=== PATIENT | male | born 1975 | race Caucasian/White ===

== ENCOUNTER 2019-09-20 15:30 | Emergency (ER) | payer OTHER ==
--- NOTE | 2019-09-20 15:50 | ED Physician Documentation ---
PD HPI ABD PAIN - Stated complaint Stated Complaint: ABD PX - Chief complaint Chief Complaint: Abd Pain - History obtained from History obtained from: Patient (2 days of nonmigratory right lower quadrant pain generally worsening and fairly constant. Radiated a little bit to the testicle yesterday but that is now gone. He talked with his doctor yesterday, was advised to come the ER if he developed nausea or fever, he did become nauseous i n the last few hours and had a low-grade temperature. No history of abdominal surgeries.) Review of Systems Ten Systems: 10 systems reviewed and negative Constitutional: reports: Fever. denies: Chills GI: reports: Nausea. denies: Vomiting, Constipation, Diarrhea : denies: Dysuria, Frequency PD PAST MEDICAL HISTORY - Past Medical History Past Medical History: No - Past Surgical History Past Surgical History: Yes HEENT: Tonsil/Adenoidectomy - Present Medications Home Medications: Ambulatory Orders Medication Instructions Recorded Confirmed Amox/Clav 875/125 [Augmentin] 1 each PO Q12H #20 tablet 09/20/19 - Allergies Allergies/Adverse Reactions: Allergies Allergy/AdvReac Type Severity Reaction Status Date / Time No Known Drug Allergies Allergy Verified 09/20/19 15:41 - Social History Does the pt smoke?: No Smoking Status: Never smoker Does the pt drink ETOH?: Yes ETOH Use: Liquor Does the pt have substance abuse?: No - Immunizations Immunizations are current?: Yes PD ED PE NORMAL - Vitals Vital signs reviewed: Yes - General General: Alert and oriented X 3, No acute distress - HEENT HEENT: PERRL, EOMI - Neck Neck: Supple, no meningeal sign, No bony TTP - Cardiac Cardiac: RRR, No murmur - Respiratory Respiratory: No respiratory distress, Clear bilaterally - Abdomen Abdomen: Other (Focally tender in the right lower quadrant without guarding or rebound. Testicular examination is normal.) - Derm Derm: No rash - Extremities Extremities: No edema, No calf tenderness / cord - Neuro Neuro: Alert and oriented X 3, Normal speech Results - Vitals Vitals: Vital Signs - 24 hr 09/20/19 09/20/19 15:38 15:40 Temperature 36.9 C Heart Rate 96 90 Respiratory 18 16 Rate Blood Pressure 152/89 H 149/85 H O2 Saturation 98 98 Oxygen O2 Source Room air - Labs Labs: Laboratory Tests 09/20/19 09/20/19 09/20/19 14:40 16:04 16:04 WBC 8.9 RBC 4.75 Hgb 14.9 Hct 43.5 MCV 91.6 MCH 31.4 H MCHC 34.3 RDW 12.6 Plt Count 158 MPV 9.2 Neut # (Auto) 6.9 H Lymph # (Auto) 0.9 L [place] # (Auto) 0.9 Eos # (Auto) 0.1 Baso # (Auto) 0.0 Absolute Nucleated RBC 0.00 Nucleated RBC % 0.0 Sodium 135 Potassium 3.3 L Chloride 103 Carbon Dioxide 23 Anion Gap 9.0 BUN 14 Creatinine 1.0 Estimated GFR (MDRD) 82 L Glucose 120 H Calcium 8.8 Total Bilirubin 1.7 H AST 23 ALT 25 Alkaline Phosphatase 59 Total Protein 7.2 Albumin 4.4 Globulin 2.8 Albumin/Globulin Ratio 1.6 Lipase 39 Urine Color DARK YELLOW Urine Clarity CLEAR Urine pH 6.5 Ur Specific [place] 1.025 Urine Protein TRACE Urine Glucose (UA) NEGATIVE Urine Ketones NEGATIVE Urine Occult Blood NEGATIVE Urine Nitrite NEGATIVE Urine Bilirubin NEGATIVE Urine Urobilinogen 1 (NORMAL) Ur Leukocyte Esterase TRACE H Urine RBC None Seen Urine WBC 0-3 Ur Squamous Epith Cells NONE SEEN Urine Bacteria None Seen Urine Mucus Marked Strands Ur Microscopic Review INDICATED Urine Culture Comments INDICATED PD MEDICAL DECISION MAKING - ED course ED course: 43-year-old gentleman presents with right lower quadrant pain concerning for appendicitis. White count was fairly normal with mild left shift. CT showing a normal appendix but findings of cecal-itis versus typhlitis versus cecal diverticulitis. Case was discussed by phone with the on-call surgeon, Dr. Castanon who felt he could be safely discharged after a dose of Zosyn here on Augmentin for follow-up colonoscopy. Patient felt comfortable with this plan and requested discharge. Departure - Departure Disposition: 01 Home, Self Care Clinical Impression: Cecal diverticulitis Condition: Good Record reviewed to determine appropriate education?: Yes Instructions: Diverticulitis Dc Prescriptions: Amox/Clav 875/125 [Augmentin] 1 each PO Q12H #20 tablet Comments: The CAT scan today showed inflammation of the cecum which is the beginning part of your colon. Your appendix looks normal. This should improve with the antibiotics. That said if not better in the next 24 to 48 hours or anytime if you are running a high fever or generally worsening please return for reevaluation. As discussed, you will need a colonoscopy in approximately 8 weeks, talk with your doctor about a referral for this. The colonoscopy cannot be done urgently because the inflammation would make it dangerous.
[2019-09-20] MEDS ORDERED: IOVERSOL 320 100 ML VIAL IVP ONE (16:09)
[2019-09-20 16:26] LABS: BASOPHILS % (AUTO) 0.5 %; EOSINOPHILS # (AUTO) 0.1 10^3/uL (0.0-0.7); EOSINOPHILS % (AUTO) 0.9 %; HGB - HEMOGLOBIN 14.9 g/dL (14.0-18.0); LYMPHOCYTES # (AUTO) 0.9 10^3/uL (1.5-3.5); MEAN CORPUSCULAR HEMOGLOBIN 31.4 pg (27.0-31.0); MEAN CORPUSCULAR HGB CONC 34.3 g/dL (32.0-36.0); MEAN CORPUSCULAR VOLUME 91.6 fL (80.0-94.0); MEAN PLATELET VOLUME 9.2 fL (7.4-11.4); MONOCYTES # (AUTO) 0.9 10^3/uL (0.0-1.0); MONOCYTES % (AUTO) 9.6 %; NEUTROPHILS # (AUTO) 6.9 10^3/uL (1.5-6.6); NEUTROPHILS % (AUTO) 78.3 %; PLT - PLATELET COUNT 158 10^3/uL (130-450); RED BLOOD COUNT 4.75 10^6/uL (4.70-6.10); RED CELL DISTRIBUTION WIDTH 12.6 % (12.0-15.0); WHITE BLOOD COUNT 8.9 x10^3/uL (4.8-10.8)
[2019-09-20 16:40] LABS: ALBUMIN 4.4 g/dL (3.2-5.5); ALBUMIN/GLOBULIN RATIO 1.6 (1.0-2.2); BILIRUBIN,TOTAL 1.7 mg/dL (0.2-1.0); CALCIUM 8.8 mg/dL (8.5-10.3); TOTAL PROTEIN 7.2 g/dL (6.7-8.2)
[2019-09-20 16:50] LABS: GLUCOSE, URINE (UA) NEGATIVE (NEGATIVE); KETONES,URINE (UA) NEGATIVE (NEGATIVE); LEUKOCYTE ESTERASE, URINE TRACE (NEGATIVE); NITRITE,URINE NEGATIVE (NEGATIVE); OCCULT BLOOD,URINE NEGATIVE (NEGATIVE); PH,URINE 6.5 PH (5.0-7.5); PROTEIN,URINE TRACE mg/dL (NEGATIVE); UROBILINOGEN,URINE 1 (NORMAL) E.U./dL (NORMAL)
[2019-09-20 16:59] LABS: BILIRUBIN,URINE NEGATIVE (NEGATIVE); CLARITY,URINE CLEAR (CLEAR); ICTOTEST,URINE NEGATIVE
[2019-09-20] MEDS: IOVERSOL 320 100 ML VIAL IVP ONE (17:01)
[2019-09-20 17:02] LABS: BACTERIA,URINE None Seen /HPF (None Seen); MUCUS,URINE Marked Strands; RBC,URINE None Seen /HPF (0-5); SQUAMOUS EPITHELIAL CELL,UR NONE SEEN (<= Few)
[2019-09-20] MEDS: PIPERACILLIN/TAZOBACTAM 3.375 GM in SODIUM CHLORIDE 0.9% MINIBAG 100 ML IV STA (17:40)
--- NOTE | 2019-09-20 17:44 | CT Report ---
Reason: IV only, RLQ pain Procedure Date: 09/20/2019 Accession Number: [id number] / [id number] Procedure: CT - Abdomen/Pelvis W CPT Code: Final Report FULL RESULT: EXAM: CT ABDOMEN AND PELVIS EXAM DATE: 09/20/2019 05:00 PM. CLINICAL HISTORY: IV only, RLQ pain. COMPARISONS: None. TECHNIQUE: Routine helical CT imaging was performed through the abdomen and pelvis. IV contrast: OPTIRAY 320. Enteric contrast: No. Reconstructions: Coronal and sagittal. In accordance with CT protocol optimization, one or more of the following dose reduction techniques were utilized for this exam: automated exposure control, adjustment of mA and/or KV based on patient size, or use of iterative reconstructive technique. FINDINGS: Lung Bases: Unremarkable. Liver: Normal. No masses. Gallbladder/Bile Ducts: Contracted gallbladder. Spleen: Normal. Pancreas: Normal. Adrenal Glands: Normal. Kidneys: Normal. No masses or hydronephrosis. Peritoneal Cavity/Bowel: Tiny diverticula noted involving cecum. There is submucosal edema, mucosal hyperenhancement and pericolonic wall thickening involving the cecum and proximal ascending colon. Findings suggestive of cecal diverticulitis,cecitis, typhlitis. Normal appendix noted. Trace free fluid seen in the pelvis. Pelvic Organs: Normal. The bladder and visualized pelvic organs are within normal limits. Vasculature: No aneurysms or other significant abnormality. Bones: No significant abnormality. Other: None. IMPRESSION: Submucosal edema, mucosal hyperenhancement and pericolonic wall thickening involving cecum and proximal ascending colon. Findings suggestive of cecal diverticulitis, cecitis or typhlitis. Normal appendix. RADIA
[2019-09-20 18:36] VITALS: BP 142/89
== END 2019-09-20 18:36 | disposition home or self-care (01) ==
LOC: ED 15:30
DX: K57.32 Diverticulitis of large intestine without perforation or abscess without bleeding (principal)
CPT/HCPCS: 36415; 74177; 80053; 81001; 83690; 85025; 87086; 96365; 99284; 99285; Q9967; 81003

== ENCOUNTER 2019-10-06 09:43 | Emergency (ER) | payer OTHER ==
[2019-10-06 10:07] LABS: BILIRUBIN,URINE NEGATIVE (NEGATIVE); GLUCOSE, URINE (UA) NEGATIVE (NEGATIVE); KETONES,URINE (UA) NEGATIVE (NEGATIVE); LEUKOCYTE ESTERASE, URINE NEGATIVE (NEGATIVE); NITRITE,URINE NEGATIVE (NEGATIVE); OCCULT BLOOD,URINE NEGATIVE (NEGATIVE); PH,URINE 6.5 PH (5.0-7.5); PROTEIN,URINE NEGATIVE (NEGATIVE); UROBILINOGEN,URINE 0.2 (NORMAL) E.U./dL (NORMAL)
[2019-10-06 10:13] LABS: BASOPHILS % (AUTO) 0.5 %; EOSINOPHILS # (AUTO) 0.1 10^3/uL (0.0-0.7); EOSINOPHILS % (AUTO) 0.9 %; HGB - HEMOGLOBIN 15.1 g/dL (14.0-18.0); LYMPHOCYTES # (AUTO) 1.2 10^3/uL (1.5-3.5); LYMPHOCYTES % (AUTO) 13.3 %; MEAN CORPUSCULAR HEMOGLOBIN 30.9 pg (27.0-31.0); MEAN CORPUSCULAR HGB CONC 33.8 g/dL (32.0-36.0); MEAN CORPUSCULAR VOLUME 91.6 fL (80.0-94.0); MEAN PLATELET VOLUME 8.8 fL (7.4-11.4); MONOCYTES # (AUTO) 0.6 10^3/uL (0.0-1.0); MONOCYTES % (AUTO) 6.3 %; NEUTROPHILS % (AUTO) 78.7 %; PLT - PLATELET COUNT 185 10^3/uL (130-450); RED BLOOD COUNT 4.88 10^6/uL (4.70-6.10); RED CELL DISTRIBUTION WIDTH 12.4 % (12.0-15.0); WHITE BLOOD COUNT 8.9 x10^3/uL (4.8-10.8)
[2019-10-06 10:14] LABS: CLARITY,URINE CLEAR (CLEAR)
--- NOTE | 2019-10-06 11:10 | ED Physician Documentation ---
PD HPI ABD PAIN - Stated complaint Stated Complaint: ABD PX - Chief complaint Chief Complaint: Abd Pain - History obtained from History obtained from: Patient - History of Present Illness Timing - onset: Today Timing - duration: Days (1) Timing - details: Gradual onset, Still present Quality: Cramping, Aching, Pain Location: RLQ, Suprapubic Radiation: No: Lower back Improved by: BM. No: Eating Worsened by: No: Eating Associated symptoms: Nausea. No: Fever, Vomiting, Diarrhea, Dysuria Similar symptoms before: Diagnosis (similar symptoms 2 weeks ago and Dx cecal diverticulitis by CT, Rx with Augmentin and he says he felt better withing 1-2 days and had no symptoms until today. Finished abx 4 days ago.) Recently seen: Emergency Dept Review of Systems Constitutional: denies: Fever, Chills Cardiac: denies: Chest pain / pressure Respiratory: denies: Cough GI: reports: Abdominal Pain, Nausea. denies: Abdominal Swelling, Vomiting, Constipation, Diarrhea : denies: Dysuria Neurologic: denies: Generalized weakness PD PAST MEDICAL HISTORY - Past Medical History Cardiovascular: None Respiratory: None Neuro: None Endocrine/Autoimmune: None GI: Diverticulitis : None HEENT: Chronic vision loss Psych: None Musculoskeletal: None Derm: None - Past Surgical History Past Surgical History: Yes HEENT: Tonsil/Adenoidectomy - Present Medications Home Medications: Ambulatory Orders Medication Instructions Recorded Confirmed Cephalexin [Keflex] 500 mg PO TID #30 capsule 10/06/19 Naproxen 500 mg PO BID #14 tablet 10/06/19 Ondansetron Odt [Zofran] 4 mg TL Q6H PRN #10 tablet 10/06/19 metroNIDAZOLE [Flagyl] 500 mg PO BID #20 tablet 10/06/19 - Allergies Allergies/Adverse Reactions: Allergies Allergy/AdvReac Type Severity Reaction Status Date / Time No Known Drug Allergies Allergy Verified 10/06/19 09:52 - Social History Does the pt smoke?: No Smoking Status: Never smoker Does the pt drink ETOH?: Yes ETOH Use: Liquor Does the pt have substance abuse?: No - Immunizations Immunizations are current?: Yes - POLST Patient has POLST: No PD ED PE NORMAL - Vitals Vital signs reviewed: Yes - General General: Alert and oriented X 3, No acute distress, Well developed/nourished - Neck Neck: Supple, no meningeal sign, No adenopathy - Cardiac Cardiac: RRR, No murmur - Respiratory Respiratory: Clear bilaterally - Abdomen Abdomen: Normal bowel sounds, Soft, Non distended, No organomegaly, Other (mild tender RLQ/suprapubic area without guarding, rebound, nor percussion tenderness. ) - Male Male : Deferred - Rectal Rectal: Deferred - Back Back: No CVA TTP - Derm Derm: Normal color, Warm and dry - Neuro Neuro: Alert and oriented X 3, No motor deficit, Normal speech Results - Vitals Vitals: Vital Signs - 24 hr 10/06/19 10/06/19 10/06/19 09:53 10:08 11:39 Temperature 36.7 C Heart Rate 85 84 72 Respiratory 18 16 16 Rate Blood Pressure 166/112 H 164/90 H 129/91 H O2 Saturation 97 96 96 10/06/19 12:17 Temperature 36.7 C Heart Rate 73 Respiratory 12 Rate Blood Pressure 139/103 H O2 Saturation 98 Oxygen O2 Source Room air - Labs Labs: Laboratory Tests 10/06/19 10/06/19 10/06/19 10:00 10:05 10:05 WBC 8.9 RBC 4.88 Hgb 15.1 Hct 44.7 MCV 91.6 MCH 30.9 MCHC 33.8 RDW 12.4 Plt Count 185 MPV 8.8 Neut # (Auto) 7.0 H Lymph # (Auto) 1.2 L [place] # (Auto) 0.6 Eos # (Auto) 0.1 Baso # (Auto) 0.0 Absolute Nucleated RBC 0.00 Nucleated RBC % 0.0 Sodium 138 Potassium 4.1 Chloride 105 Carbon Dioxide 27 Anion Gap 6.0 BUN 12 Creatinine 1.0 Estimated GFR (MDRD) 82 L Glucose 119 H Calcium 9.5 Total Bilirubin 1.1 H AST 34 ALT 32 Alkaline Phosphatase 64 Total Protein 7.6 Albumin 4.3 Globulin 3.3 Albumin/Globulin Ratio 1.3 Lipase 42 Urine Color DARK YELLOW Urine Clarity CLEAR Urine pH 6.5 Ur Specific [place] 1.020 Urine Protein NEGATIVE Urine Glucose (UA) NEGATIVE Urine Ketones NEGATIVE Urine Occult Blood NEGATIVE Urine Nitrite NEGATIVE Urine Bilirubin NEGATIVE Urine Urobilinogen 0.2 (NORMAL) Ur Leukocyte Esterase NEGATIVE Ur Microscopic Review NOT INDICATED Urine Culture Comments NOT INDICATED PD MEDICAL DECISION MAKING - ED course Complexity details: reviewed old records, considered differential (pain same as recent Dx cecal diverticulitis, off abx just few days with return of symptoms. Shared decision not to do repeat imaging, as low suspicion for perf/abscess based on symptoms/exam. ), d/w patient Departure - Departure Disposition: 01 Home, Self Care Clinical Impression: Lower abdominal pain, Cecal diverticulitis Condition: Stable Record reviewed to determine appropriate education?: Yes Instructions: ED Diverticulitis Follow-Up: DORIS ASHLEY [Primary Care Provider] - Prescriptions: Cephalexin [Keflex] 500 mg PO TID #30 capsule metroNIDAZOLE [Flagyl] 500 mg PO BID #20 tablet Naproxen 500 mg PO BID #14 tablet Ondansetron Odt [Zofran] 4 mg TL Q6H PRN #10 tablet PRN Reason: Nausea / Vomiting Comments: Stay well-hydrated and normal diet. Ondansetron if needed for nausea. Tylenol if needed for fevers. Naproxen anti-inflammatory twice daily for a week. Cephalexin and metronidazole antibiotics as directed for a week. Recheck if not improving well over the next couple of days return sooner if worsening or if recurrence again after the next course of antibiotics. Discharge Date/Time: 10/06/19 12:21
[2019-10-06 11:17] LABS: ALBUMIN 4.3 g/dL (3.2-5.5); ALBUMIN/GLOBULIN RATIO 1.3 (1.0-2.2); BILIRUBIN,TOTAL 1.1 mg/dL (0.2-1.0); CALCIUM 9.5 mg/dL (8.5-10.3); TOTAL PROTEIN 7.6 g/dL (6.7-8.2)
[2019-10-06] MEDS ORDERED: KETOROLAC 30 MG/ML VIAL IVP STA (11:27)
[2019-10-06] MEDS ORDERED: cefTRIAXone 1 GM VIAL IVP STA (11:27)
[2019-10-06 12:17] VITALS: BP 139/103
== END 2019-10-06 12:21 | disposition home or self-care (01) ==
LOC: ED 09:43
DX: K57.32 Diverticulitis of large intestine without perforation or abscess without bleeding (principal)
CPT/HCPCS: 36415; 80053; 81001; 81003; 83690; 85025; 87086; 96374; 96375; 99284

== ENCOUNTER 2021-06-27 08:00 | Outpatient (CLI) | payer OTHER | END 2021-06-27 23:59 | LOC: LAB.N 08:00 | PROVIDERS: ATTEND Family Medicine | DX: R53.83 Other fatigue (principal); R53.81 Other malaise; Z20.822 Contact with and (suspected) exposure to COVID-19 | CPT/HCPCS: 87275; 87276 ==

== ENCOUNTER 2022-11-01 14:10 | Outpatient (CLI) | payer OTHER | END 2022-11-01 14:11 | disposition EMS.NT | LOC: EMS 14:10 | DX: Z03.89 Encounter for observation for other suspected diseases and conditions ruled out (principal) ==

== ENCOUNTER 2022-11-29 14:29 | Emergency (ER) | payer OTHER ==
[2022-11-29 14:50] VITALS: BP 169/112
--- NOTE | 2022-11-29 14:58 | ED Physician Documentation ---
PD HPI MHE - Stated complaint Stated Complaint: NOT FEELING WELL - Chief complaint Chief Complaint: MHE - History obtained from History obtained from: Patient - History of Present Illness Primary symptom: Depression, Anxiety. No: Suicidal ideation Timing - onset: How many weeks ago (he states has had depression and anxiety for years wtihout treatment. It has been much worse the past several weeks. has been drinking regularly as well. Had been binge drinker on weeks ends. He denies everry day drinking. Gets some shakiness next day. No vomiting nor severe syptoms previousl.) Contributing factors: Family, Substance abuse - ETOH Similar symptoms before: Has not had sx before Recently seen: Not recently seen Review of Systems Constitutional: denies: Fever, Chills Nose: denies: Rhinorrhea / runny nose, Congestion Throat: denies: Sore throat Cardiac: denies: Chest pain / pressure Respiratory: denies: Cough GI: reports: Abdominal Pain, Nausea, Vomiting, Diarrhea. denies: Abdominal Swelling PD PAST MEDICAL HISTORY - Past Medical History Cardiovascular: None Respiratory: None Neuro: None Endocrine/Autoimmune: None GI: Diverticulitis : None HEENT: Chronic vision loss Psych: None Musculoskeletal: None Derm: None - Past Surgical History Past Surgical History: Yes HEENT: Tonsil/Adenoidectomy - Present Medications Home Medications: Ambulatory Orders Medication Instructions Recorded Confirmed Naproxen 500 mg PO BID #14 tablet 10/06/19 Ondansetron Odt [Zofran] 4 mg TL Q6H PRN #10 tablet 10/06/19 cephALEXin [Keflex] 500 mg PO TID #30 capsule 10/06/19 metroNIDAZOLE [Flagyl] 500 mg PO BID #20 tablet 10/06/19 LORazepam [Ativan] 1 mg PO Q6H PRN #25 tablet 11/29/22 Ondansetron Odt [Zofran] 4 mg TL Q6H PRN #20 tablet 11/29/22 buPROPion HCL [Bupropion Xl] 150 mg PO DAILY #30 tab 11/29/22 - Allergies Allergies/Adverse Reactions: Allergies Allergy/AdvReac Type Severity Reaction Status Date / Time No Known Drug Allergies Allergy Verified 11/29/22 14:49 - Social History Does the pt smoke?: No Smoking Status: Never smoker Does the pt drink ETOH?: Yes Does the pt have substance abuse?: No - Immunizations Immunizations are current?: Yes - POLST Patient has POLST: No PD ED PE NORMAL - Vitals Vital signs reviewed: Yes - General General: Alert and oriented X 3, Well developed/nourished, Other (smell of alcohol on breath. Easily tearful and emotive. ) - HEENT HEENT: Pharynx benign - Neck Neck: Supple, no meningeal sign, No adenopathy - Cardiac Cardiac: No murmur, No rub. No: RRR (tachycardic but regular. ) - Respiratory Respiratory: No respiratory distress, Clear bilaterally - Abdomen Abdomen: Normal bowel sounds, Soft, Non distended, No organomegaly, Other (mild tender epigastric without percussion nor rebound tenderness. ) - Male Male : Deferred - Rectal Rectal: Deferred - Derm Derm: Normal color, Warm and dry - Extremities Extremities: Normal ROM s pain, No edema - Neuro Neuro: Alert and oriented X 3, No motor deficit, No sensory deficit, Normal speech - Psych Psych: No: Normal mood (sad and tearful; sounds emotionally depleted of energy. ) Results - Vitals Vitals: Vital Signs - 24 hr 11/29/22 14:42 Temperature 36.4 C L Heart Rate 122 H Respiratory 24 Rate Blood Pressure 169/112 H O2 Saturation 96 Oxygen O2 Source Room air - Labs Labs: Laboratory Tests 11/29/22 11/29/22 11/29/22 15:23 15:23 15:23 WBC 7.1 RBC 5.23 Hgb 16.4 Hct 48.3 MCV 92.4 MCH 31.4 H MCHC 34.0 RDW 13.6 Plt Count 252 MPV 8.4 Neut # (Auto) 3.7 Lymph # (Auto) 2.7 [place] # (Auto) 0.6 Eos # (Auto) 0.1 Baso # (Auto) 0.1 Absolute Nucleated RBC 0.00 Nucleated RBC % 0.0 Sodium 141 Potassium 4.0 Chloride 107 Carbon Dioxide 24 Anion Gap 10.0 BUN 16 Creatinine 1.1 Estimated GFR (MDRD) 72 L Glucose 164 H Calcium 9.0 Magnesium 1.8 Total Bilirubin 0.6 AST 40 ALT 34 Alkaline Phosphatase 81 Total Creatine Kinase 356 H C-Reactive Protein < 1.0 Total Protein 7.6 Albumin 4.2 Globulin 3.4 Albumin/Globulin Ratio 1.2 Lipase 44 TSH 0.40 Urine Color Urine Clarity Urine pH Ur Specific [place] Urine Protein Urine Glucose (UA) Urine Ketones Urine Occult Blood Urine Nitrite Urine Bilirubin Urine Urobilinogen Ur Leukocyte Esterase Urine RBC Urine WBC Ur Squamous Epith Cells Urine Bacteria Urine Mucus Ur Microscopic Review Urine Culture Comments Salicylates < 6.0 Urine Opiates Screen Ur Oxycodone Screen Urine Methadone Screen Ur Propoxyphene Screen Acetaminophen < 10 L Ur Barbiturates Screen Ur Tricyclics Screen Ur Phencyclidine Scrn Ur Amphetamine Screen U Methamphetamines Scrn U Benzodiazepines Scrn Urine Cocaine Screen U Cannabinoids Screen Ethyl Alcohol 362.7 11/29/22 15:49 WBC RBC Hgb Hct MCV MCH MCHC RDW Plt Count MPV Neut # (Auto) Lymph # (Auto) [place] # (Auto) Eos # (Auto) Baso # (Auto) Absolute Nucleated RBC Nucleated RBC % Sodium Potassium Chloride Carbon Dioxide Anion Gap BUN Creatinine Estimated GFR (MDRD) Glucose Calcium Magnesium Total Bilirubin AST ALT Alkaline Phosphatase Total Creatine Kinase C-Reactive Protein Total Protein Albumin Globulin Albumin/Globulin Ratio Lipase TSH Urine Color YELLOW Urine Clarity CLEAR Urine pH 5.5 Ur Specific [place] >=1.030 H Urine Protein 30 H Urine Glucose (UA) NEGATIVE Urine Ketones TRACE Urine Occult Blood NEGATIVE Urine Nitrite NEGATIVE Urine Bilirubin NEGATIVE Urine Urobilinogen 0.2 (NORMAL) Ur Leukocyte Esterase NEGATIVE Urine RBC 0-5 Urine WBC 0-3 Ur Squamous Epith Cells NONE SEEN Urine Bacteria None Seen Urine Mucus Few Strands Ur Microscopic Review INDICATED Urine Culture Comments NOT INDICATED Salicylates Urine Opiates Screen NEGATIVE Ur Oxycodone Screen NEGATIVE Urine Methadone Screen NEGATIVE Ur Propoxyphene Screen NEGATIVE Acetaminophen Ur Barbiturates Screen NEGATIVE Ur Tricyclics Screen NEGATIVE Ur Phencyclidine Scrn NEGATIVE Ur Amphetamine Screen NEGATIVE U Methamphetamines Scrn NEGATIVE U Benzodiazepines Scrn NEGATIVE Urine Cocaine Screen NEGATIVE U Cannabinoids Screen NEGATIVE Ethyl Alcohol PD Medical Decision Making - ED course Complexity details: reviewed results (most labs are good. BA is obvious well elevated suggesting a good element of tolerance.), considered differential (depression and asking for help. No current meds. no suicidal nor homocidal ideation. ), d/w patient, d/w consultant technology (ocial work Andria talked with patient. He was not wanting detox faiclity but askinfg for meds/treatments for home. ) ED course: The patient left just shortly prior to my going back with labs results and to reassess. I initially had offered to start patient on antidepressants and nausea meds. Social work gave info regarding detox and counseling follow up. I can call patient later to see if he would like scripts for meds above. Consider Zofran, Perhaps famotidine, and can start Bupropiron as helpful for depression but might help alcoholism with less cravings. Departure - Departure Disposition: ED [place] Clinical Impression: Alcohol use disorder, Anxiety, Depression Alcoholic intoxication Qualifiers: Complication of substance-induced condition: uncomplicated Qualified Code(s): F10.920 - Alcohol use, unspecified with intoxication, uncomplicated Condition: Stable Record reviewed to determine appropriate education?: Yes Prescriptions: LORazepam [Ativan] 1 mg PO Q6H PRN #25 tablet PRN Reason: Alcohol Withdrawal buPROPion HCL [Bupropion Xl] 150 mg PO DAILY #30 tab Ondansetron Odt [Zofran] 4 mg TL Q6H PRN #20 tablet PRN Reason: Nausea / Vomiting Discharge Date/Time: 11/29/22 17:27
[2022-11-29 15:30] LABS: BASOPHILS # (AUTO) 0.1 10^3/uL (0.0-0.1); BASOPHILS % (AUTO) 0.8 %; EOSINOPHILS # (AUTO) 0.1 10^3/uL (0.0-0.7); EOSINOPHILS % (AUTO) 1.7 %; HCT - HEMATOCRIT 48.3 % (42.0-52.0); HGB - HEMOGLOBIN 16.4 g/dL (14.0-18.0); LYMPHOCYTES # (AUTO) 2.7 10^3/uL (1.5-3.5); LYMPHOCYTES % (AUTO) 37.7 %; MEAN CORPUSCULAR HEMOGLOBIN 31.4 pg (27.0-31.0); MEAN CORPUSCULAR VOLUME 92.4 fL (80.0-94.0); MEAN PLATELET VOLUME 8.4 fL (7.4-11.4); MONOCYTES # (AUTO) 0.6 10^3/uL (0.0-1.0); MONOCYTES % (AUTO) 7.7 %; NEUTROPHILS # (AUTO) 3.7 10^3/uL (1.5-6.6); PLT - PLATELET COUNT 252 10^3/uL (130-450); RED BLOOD COUNT 5.23 10^6/uL (4.70-6.10); RED CELL DISTRIBUTION WIDTH 13.6 % (12.0-15.0); WHITE BLOOD COUNT 7.1 x10^3/uL (4.8-10.8)
[2022-11-29 15:50] LABS: MUDS CUTOFF CONCENTRATIONS CUTOFF CONC BELOW:
[2022-11-29 15:51] LABS: ACETAMINOPHEN < 10 ug/mL (10-30); ALBUMIN 4.2 g/dL (3.2-5.5); ALBUMIN/GLOBULIN RATIO 1.2 (1.0-2.2); ALKALINE PHOSPHATASE 81 IU/L (42-121); ALT ALANINE AMINOTRANSFERASE 34 IU/L (10-60); AST ASPARTATE AMINOTRANSFERASE 40 IU/L (10-42); BILIRUBIN,TOTAL 0.6 mg/dL (0.2-1.0); BUN - BLOOD UREA NITROGEN 16 mg/dL (6-20); CARBON DIOXIDE - CO2 24 mmol/L (21-32); CHLORIDE 107 mmol/L (101-111); CK- CREATINE KINASE 356 IU/L (22-269); CREATININE 1.1 mg/dL (0.6-1.2); ETOH - ETHANOL 362.7 mg/dL; GFR - MDRD 72 (>89); GLUCOSE 164 mg/dL (70-100); LIPASE 44 U/L (22-51); MAGNESIUM 1.8 mg/dL (1.7-2.8); SALICYLATE < 6.0 mg/dL; SODIUM 141 mmol/L (135-145); TOTAL PROTEIN 7.6 g/dL (6.7-8.2)
[2022-11-29 15:52] LABS: CRP - C-REACTIVE PROTEIN < 1.0 mg/dL (0-1.0)
[2022-11-29 15:54] LABS: BILIRUBIN,URINE NEGATIVE (NEGATIVE); GLUCOSE, URINE (UA) NEGATIVE (NEGATIVE); KETONES,URINE (UA) TRACE mg/dL (NEGATIVE); LEUKOCYTE ESTERASE, URINE NEGATIVE (NEGATIVE); NITRITE,URINE NEGATIVE (NEGATIVE); OCCULT BLOOD,URINE NEGATIVE (NEGATIVE); PH,URINE 5.5 PH (5.0-7.5); PROTEIN,URINE 30 mg/dL (NEGATIVE); UROBILINOGEN,URINE 0.2 (NORMAL) E.U./dL (NORMAL)
[2022-11-29 15:57] LABS: CLARITY,URINE CLEAR (CLEAR)
[2022-11-29 16:08] LABS: AMPHETAMINE SCREEN,URINE NEGATIVE (NEGATIVE); BARBITURATE SCREEN,UR NEGATIVE (NEGATIVE); BENZODIAZEPINES SCREEN, URINE NEGATIVE (NEGATIVE); COCAINE SCREEN URINE NEGATIVE (NEGATIVE); METHADONE SCREEN, URINE NEGATIVE (NEGATIVE); METHAMPHETAMINES SCREEN, URINE NEGATIVE (NEGATIVE); OPIATE SCREEN, URINE NEGATIVE (NEGATIVE); OXYCODONE SCREEN, URINE NEGATIVE (NEGATIVE); PROPOXYPHENE SCREEN, URINE NEGATIVE (NEGATIVE); THC CANNABINOID SCREEN, URINE NEGATIVE (NEGATIVE); TRICYCLIC ANTIDEPRESSANT,URINE NEGATIVE (NEGATIVE)
[2022-11-29 16:17] LABS: BACTERIA,URINE None Seen /HPF (None Seen); MUCUS,URINE Few Strands; RBC,URINE 0-5 /HPF (0-5); SQUAMOUS EPITHELIAL CELL,UR NONE SEEN (<= Few); WBC,URINE 0-3 /HPF (0-3)
== END 2022-11-29 17:27 | disposition left against medical advice (07) ==
LOC: ED 14:29
DX: F32.A Depression, unspecified (principal); F41.9 Anxiety disorder, unspecified; F10.90 Alcohol use, unspecified, uncomplicated; Y90.8 Blood alcohol level of 240 mg/100 ml or more; Z79.899 Other long term (current) drug therapy
CPT/HCPCS: 36415; 80053; 80306; 80307; 80320; 80329; 81001; 81003; 82550; 82705; 83630; 83690; 83735; 83993; 84443; 85025; 86140; 87086; 99283; 99284

== ENCOUNTER 2022-11-30 10:24 | Outpatient (CLI) | payer OTHER | END 2022-11-30 23:59 | disposition critical access hospital (66) | LOC: EMS 10:24 | DX: R11.0 Nausea (principal); R25.9 Unspecified abnormal involuntary movements; F10.20 Alcohol dependence, uncomplicated | CPT/HCPCS: A0425; A0429 ==

== ENCOUNTER 2022-11-30 10:47 | Emergency (ER) | payer OTHER ==
--- NOTE | 2022-11-30 11:25 | ED Physician Documentation ---
PD HPI NVD - Stated complaint Stated Complaint: ETOH WITHDRAWL/NV - Chief complaint Chief Complaint: General - History obtained from History obtained from: Patient - History of Present Illness Timing - onset: Yesterday Timing - duration: Days (1-2) Timing - details: Abrupt onset, Still present Associated symptoms: Abdominal pain (cramping), Loss of appetite. No: Fever, Near syncope / syncope Contributing factors: Alcohol use (stopped yesterday and having symptoms; some alcohol last night to reduce symptoms. He is able to function during the days, works for [employer] ([employer]).) Worsened by: No: Eating Similar symptoms before: Has not had sx before (The patient states he drinks about 1/5 of liquor daily and has done so for a very long time without any sober intervals so has not really experienced detox/withdrawal.) Recently seen: Not recently seen Review of Systems Constitutional: denies: Fever Nose: denies: Rhinorrhea / runny nose, Congestion Throat: denies: Sore throat Respiratory: denies: Cough PD PAST MEDICAL HISTORY - Past Medical History Cardiovascular: None Respiratory: None Neuro: None Endocrine/Autoimmune: None GI: Diverticulitis : None HEENT: Chronic vision loss Psych: None Musculoskeletal: None Derm: None - Past Surgical History Past Surgical History: Yes HEENT: Tonsil/Adenoidectomy - Present Medications Home Medications: Ambulatory Orders Medication Instructions Recorded Confirmed Naproxen 500 mg PO BID #14 tablet 10/06/19 Ondansetron Odt [Zofran] 4 mg TL Q6H PRN #10 tablet 10/06/19 cephALEXin [Keflex] 500 mg PO TID #30 capsule 10/06/19 metroNIDAZOLE [Flagyl] 500 mg PO BID #20 tablet 10/06/19 LORazepam [Ativan] 1 mg PO Q6H PRN #25 tablet 11/29/22 Ondansetron Odt [Zofran] 4 mg TL Q6H PRN #20 tablet 11/29/22 buPROPion HCL [Bupropion Xl] 150 mg PO DAILY #30 tab 11/29/22 LORazepam [Ativan] 1 mg PO Q6H PRN #20 tablet 11/30/22 Ondansetron Odt [Zofran] 4 mg TL Q6H PRN #10 tablet 11/30/22 PHENobarbitaL [Phenobarbital] 30 mg PO BID 6 Days #9 tablet 11/30/22 - Allergies Allergies/Adverse Reactions: Allergies Allergy/AdvReac Type Severity Reaction Status Date / Time No Known Drug Allergies Allergy Verified 11/30/22 10:56 - Social History Does the pt smoke?: No Smoking Status: Never smoker Does the pt drink ETOH?: Yes ETOH Use: Liquor (Fifth daily) Does the pt have substance abuse?: No - Immunizations Immunizations are current?: Yes - POLST Patient has POLST: No PD ED PE NORMAL - Vitals Vital signs reviewed: Yes - General General: Alert and oriented X 3, Well developed/nourished - Neck Neck: Supple, no meningeal sign, No adenopathy - Cardiac Cardiac: RRR, No murmur - Respiratory Respiratory: No respiratory distress, Clear bilaterally - Abdomen Abdomen: Soft, Non tender, Non distended - Derm Derm: Warm and dry. No: Normal color (somewhat pale. ) - Neuro Neuro: Alert and oriented X 3, No motor deficit, Normal speech, Other (Shaking with a resting and intention tremor. Appears uncomfortable related to nausea.) Results - Vitals Vitals: Vital Signs - 24 hr 11/30/22 11/30/22 11/30/22 10:53 14:20 15:40 Temperature 36.9 C Heart Rate 89 82 Respiratory 19 19 16 Rate Blood Pressure 159/114 H 149/84 H 140/82 H O2 Saturation 97 96 95 11/30/22 16:26 Temperature Heart Rate 86 Respiratory 18 Rate Blood Pressure 169/97 H O2 Saturation 99 Oxygen O2 Source Room air - Labs Labs: Laboratory Tests 11/30/22 11/30/22 11/30/22 12:03 12:03 12:03 WBC 5.5 RBC 4.68 L Hgb 14.9 Hct 43.5 MCV 92.9 MCH 31.8 H MCHC 34.3 RDW 13.5 Plt Count 145 MPV 8.4 Neut # (Auto) 4.3 Lymph # (Auto) 0.[address] [place] # (Auto) 0.4 Eos # (Auto) 0.1 Baso # (Auto) 0.0 Absolute Nucleated RBC 0.00 Nucleated RBC % 0.0 Sodium 139 Potassium 4.1 Chloride 105 Carbon Dioxide 27 Anion Gap 7.0 BUN 14 Creatinine 1.0 Estimated GFR (MDRD) 80 L Glucose 108 H Calcium 9.2 Magnesium 1.8 Total Bilirubin 1.5 H AST 50 H ALT 36 Alkaline Phosphatase 67 Total Protein 7.5 Albumin 4.4 Globulin 3.1 Albumin/Globulin Ratio 1.4 Lipase 42 TSH 0.53 Urine Color Urine Clarity Urine pH Ur Specific [place] Urine Protein Urine Glucose (UA) Urine Ketones Urine Occult Blood Urine Nitrite Urine Bilirubin Urine Urobilinogen Ur Leukocyte Esterase Ur Microscopic Review Urine Culture Comments Ethyl Alcohol < 5.0 11/30/22 12:35 WBC RBC Hgb Hct MCV MCH MCHC RDW Plt Count MPV Neut # (Auto) Lymph # (Auto) [place] # (Auto) Eos # (Auto) Baso # (Auto) Absolute Nucleated RBC Nucleated RBC % Sodium Potassium Chloride Carbon Dioxide Anion Gap BUN Creatinine Estimated GFR (MDRD) Glucose Calcium Magnesium Total Bilirubin AST ALT Alkaline Phosphatase Total Protein Albumin Globulin Albumin/Globulin Ratio Lipase TSH Urine Color DARK YELLOW Urine Clarity CLEAR Urine pH 6.0 Ur Specific [place] >=1.030 H Urine Protein TRACE Urine Glucose (UA) NEGATIVE Urine Ketones 15 H Urine Occult Blood NEGATIVE Urine Nitrite NEGATIVE Urine Bilirubin NEGATIVE Urine Urobilinogen 0.2 (NORMAL) Ur Leukocyte Esterase NEGATIVE Ur Microscopic Review NOT INDICATED Urine Culture Comments NOT INDICATED Ethyl Alcohol PD Medical Decision Making - ED course Complexity details: reviewed results (CBC is good. Platelets are normal. LFTs are not elevatd. Minimal elevated bili of 1.5. Lipase okay. Lytes are okay. ), re-evaluated patient (he is much calmer, not tremoring after few doses of meds to find optimal dose initally. This will give me a sense of dose/amount for scripts. ), considered differential (Patient with history of chronic alcoholism has not really had any detox episodes. He feels he needs to stop now. There was no particular tipping point per se. He is having withdrawal symptoms. He is hoping to get into detox center.), d/w patient Social Determinants of Health: he was trying to get into [facility]. They had him call at 11:30 and again 2:30 as they might have beds/intkae. However no intake spaces at those times. He is to call back this evening. At this point though, the patient is comfortable with discharge home with emds and call from home. He would like that facility as close by. If unable to accompdate him, I told him there are detox at [facility] and [place]. He can get their numbers from us by calling us if needed. Drug Therapy Requiring Monitoring for Toxicity: he is having moderate alcohol withdrawal. He is given IF fluids. Checking labs. Gave thiamine and folate as well. Given Phenobarb and Ativan for withdrawal symptoms with improvement. Departure - Departure Disposition: 01 Home, Self Care Clinical Impression: Alcoholism, Alcohol withdrawal Condition: Stable Record reviewed to determine appropriate education?: Yes Instructions: ED Withdrawal Alcohol Prescriptions: LORazepam [Ativan] 1 mg PO Q6H PRN #20 tablet PRN Reason: Alcohol Withdrawal PHENobarbitaL [Phenobarbital] 30 mg PO BID 6 Days #9 tablet Ondansetron Odt [Zofran] 4 mg TL Q6H PRN #10 tablet PRN Reason: Nausea / Vomiting Comments: Check back with [facility] as they recommended later today and tomorrow. Meanwhile we can treat your withdrawal symptoms with a combination of phenobarbital which is a little longer lasting so taken twice daily initially for the first 3 days and then once daily for 3 days. In addition to that use lorazepam every 4-6 hours if needed for withdrawal symptoms. Ondansetron if needed for nausea. Stay well-hydrated. Of course avoid alcohol. Activity as tolerated. I will write a work note for tomorrow as it may take a day or so to find the right dosages per se for the withdrawal medicine. Typically the medication for the withdrawal can be tapered down over several days to week. It would still benefit to have the medication and psychological//social support of this so getting into a detox facility is still appropriate. I sent your prescriptions to [facility] pharmacy in [place]. Return to the ER as needed. Discharge Date/Time: 11/30/22 16:28
[2022-11-30] MEDS ORDERED: SODIUM CHLORIDE 0.9% 1,000 ML IV STA (11:55)
[2022-11-30 12:09] LABS: BASOPHILS % (AUTO) 0.7 %; EOSINOPHILS # (AUTO) 0.1 10^3/uL (0.0-0.7); EOSINOPHILS % (AUTO) 1.3 %; HCT - HEMATOCRIT 43.5 % (42.0-52.0); HGB - HEMOGLOBIN 14.9 g/dL (14.0-18.0); LYMPHOCYTES # (AUTO) 0.7 10^3/uL (1.5-3.5); LYMPHOCYTES % (AUTO) 12.9 %; MEAN CORPUSCULAR HEMOGLOBIN 31.8 pg (27.0-31.0); MEAN CORPUSCULAR HGB CONC 34.3 g/dL (32.0-36.0); MEAN CORPUSCULAR VOLUME 92.9 fL (80.0-94.0); MEAN PLATELET VOLUME 8.4 fL (7.4-11.4); MONOCYTES # (AUTO) 0.4 10^3/uL (0.0-1.0); MONOCYTES % (AUTO) 7.6 %; NEUTROPHILS # (AUTO) 4.3 10^3/uL (1.5-6.6); NEUTROPHILS % (AUTO) 77.3 %; PLT - PLATELET COUNT 145 10^3/uL (130-450); RED BLOOD COUNT 4.68 10^6/uL (4.70-6.10); RED CELL DISTRIBUTION WIDTH 13.5 % (12.0-15.0); WHITE BLOOD COUNT 5.5 x10^3/uL (4.8-10.8)
[2022-11-30] MEDS ORDERED: FAMOTIDINE 20 MG/2 ML VIAL IVP STA (12:16)
[2022-11-30] MEDS ORDERED: LORazepam 2 MG/ML VIAL IVP STA ×3 (12:16→15:30)
[2022-11-30] MEDS ORDERED: PHENobarbital 65 MG/ML VIAL IV STA (12:17)
[2022-11-30] MEDS ORDERED: ONDANSETRON 4 MG/2 ML VIAL IVP STA (12:17)
[2022-11-30 12:22] LABS: ALBUMIN 4.4 g/dL (3.2-5.5); ALBUMIN/GLOBULIN RATIO 1.4 (1.0-2.2); ALKALINE PHOSPHATASE 67 IU/L (42-121); ALT ALANINE AMINOTRANSFERASE 36 IU/L (10-60); AST ASPARTATE AMINOTRANSFERASE 50 IU/L (10-42); BILIRUBIN,TOTAL 1.5 mg/dL (0.2-1.0); BUN - BLOOD UREA NITROGEN 14 mg/dL (6-20); CALCIUM 9.2 mg/dL (8.5-10.3); CARBON DIOXIDE - CO2 27 mmol/L (21-32); CHLORIDE 105 mmol/L (101-111); ETOH - ETHANOL < 5.0 mg/dL; GFR - MDRD 80 (>89); GLUCOSE 108 mg/dL (70-100); LIPASE 42 U/L (22-51); MAGNESIUM 1.8 mg/dL (1.7-2.8); POTASSIUM 4.1 mmol/L (3.5-5.0); SODIUM 139 mmol/L (135-145); TOTAL PROTEIN 7.5 g/dL (6.7-8.2)
[2022-11-30] MEDS ORDERED: THIAMINE INJ 100 MG, FOLIC ACID INJ 1 MG in SODIUM CHLORIDE 0.9% 1,000 ML IV STA (12:24)
[2022-11-30 12:56] LABS: GLUCOSE, URINE (UA) NEGATIVE (NEGATIVE); KETONES,URINE (UA) 15 mg/dL (NEGATIVE); LEUKOCYTE ESTERASE, URINE NEGATIVE (NEGATIVE); NITRITE,URINE NEGATIVE (NEGATIVE); OCCULT BLOOD,URINE NEGATIVE (NEGATIVE); PROTEIN,URINE TRACE mg/dL (NEGATIVE); UROBILINOGEN,URINE 0.2 (NORMAL) E.U./dL (NORMAL)
[2022-11-30 13:00] LABS: CLARITY,URINE CLEAR (CLEAR); ICTOTEST,URINE NEGATIVE
[2022-11-30 13:01] LABS: BILIRUBIN,URINE NEGATIVE (NEGATIVE)
[2022-11-30] MEDS ORDERED: PHENobarbitaL 32.4 MG TABLET PO STA (15:30)
[2022-11-30 16:30] VITALS: BP 169/97
== END 2022-11-30 16:28 | disposition home or self-care (01) ==
LOC: EDUNIT# → ED 10:47
DX: F10.239 Alcohol dependence with withdrawal, unspecified (principal); Y90.0 Blood alcohol level of less than 20 mg/100 ml
CPT/HCPCS: 36415; 80053; 80320; 81003; 83690; 83735; 84443; 85025; 96365; 96375; 99283; 99284; A9270; J2060; J3411; 81001; 87086

== ENCOUNTER 2023-08-29 13:18 | Emergency (ER) | payer OTHER ==
--- NOTE | 2023-08-29 14:13 | ED Physician Documentation ---
History of Present Illness - Stated complaint Stated Complaint: BACK PX - Chief complaint Chief Complaint: Back Pain - History obtained from History obtained from: Patient - Additonal information Additional information: The patient comes to the emergency department with chief complaint of left lower back pain and rib pain after falling against a bookcase several days ago. 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 He is concerned he may have broken a rib. He denies any cough, shortness of breath, or fever, but does state it hurts when he takes a deep breath or coughs. It also hurts with certain positions. No other complaints at this time. No numbness, tingling, or weakness down his leg. PD PAST MEDICAL HISTORY - Past Medical History Cardiovascular: None Respiratory: None Neuro: None Endocrine/Autoimmune: None GI: Diverticulitis : None HEENT: Chronic vision loss Psych: None Musculoskeletal: None Derm: None - Past Surgical History Past Surgical History: Yes HEENT: Tonsil/Adenoidectomy - Present Medications Home Medications: Ambulatory Orders Medication Instructions Recorded Confirmed buPROPion HCL [Bupropion Xl] 150 mg PO DAILY #30 tab 11/29/22 08/29/23 HYDROcod/ACETAM 5/325 [Organ 5/325] 1 - 2 tablet PO Q6H PRN #14 tablet 08/29/23 Lisinopril [Zestril] 10 mg PO DAILY 08/29/23 08/29/23 Sertraline [Zoloft] 25 mg PO DAILY 08/29/23 08/29/23 amLODIPine [Norvasc] 10 mg PO DAILY 08/29/23 08/29/23 predniSONE [Deltasone] 10 mg PO [id number] #42 tab 08/29/23 - Allergies Allergies/Adverse Reactions: Allergies Allergy/AdvReac Type Severity Reaction Status Date / Time No Known Drug Allergies Allergy Verified 08/29/23 13:50 - Social History Does the pt smoke?: No Smoking Status: Never smoker Does the pt drink ETOH?: Yes Does the pt have substance abuse?: No - Immunizations Immunizations are current?: Yes - POLST Patient has POLST: No PD ED PE NORMAL - Vitals Vital signs reviewed: Yes - General General: Alert and oriented X 3, No acute distress - HEENT HEENT: Atraumatic, PERRL, EOMI, Moist mucous membranes - Neck Neck: Supple, no meningeal sign - Cardiac Cardiac: RRR, No murmur - Respiratory Respiratory: No respiratory distress, Clear bilaterally - Abdomen Abdomen: Soft, Non tender, Non distended - Derm Derm: Warm and dry - Extremities Extremities: No deformity - Neuro Neuro: Alert and oriented X 3 - Psych Psych: Normal mood, Normal affect Results - Vitals Vitals: Vital Signs - 24 hr 08/29/23 08/29/23 13:45 15:43 Temperature 36.7 C Heart Rate 100 72 Respiratory 17 18 Rate Blood Pressure 141/94 H 138/82 H O2 Saturation 98 100 Oxygen O2 Source Room air - Rads (name of study) lumbar spine XR Relevant Findings:: Final report received, See rad report (neg) L ribs/chest XR series Relevant Findings:: Final report received, See rad report (neg) PD Medical Decision Making - ED course Complexity details: reviewed results, re-evaluated patient, considered differential, d/w patient ED course: The patient was worked up with x-rays of the ribs and lumbar spine. He was given a dose of Toradol and Decadron here in the ED. He was feeling much better on re-eval, and X-rays were negative. We have discussed the usual indications for return, as well as symptomatic management at home. Departure - Departure Disposition: 01 Home, Self Care Clinical Impression: Back pain Qualifiers: Back pain location: low back pain Chronicity: acute Back pain laterality: left Sciatica presence: without sciatica Qualified Code(s): M54.50 - Low back pain, unspecified Back contusion Qualifiers: Encounter type: initial encounter Laterality: left Qualified Code(s): S20.222A - Contusion of left back wall of thorax, initial encounter Condition: Stable Instructions: ED Low Back Pain Injury Prescriptions: predniSONE [Deltasone] 10 mg PO [id number] #42 tab HYDROcod/ACETAM 5/325 [Organ 5/325] 1 - 2 tablet PO Q6H PRN #14 tablet PRN Reason: Pain Comments: Your x-rays look good at first pass. Your lumbar spine x-ray has been read as negative by the radiologist. The reading on your rib series is still pending, but there is no obvious fracture, and you have not punctured your lung. The bruise on your back is slightly below the level of the 12th rib, the lowest 1 and your rib cage. It is possible that you still could have hit that area enough to cause a fracture, though if there is a fracture it is not clearly visualized on the x-ray. Whether or not there is a fracture, the treatment is more or less the same, which is Anti-inflammatories and pain medicine, ice, heat, stretching, and what ever level of activity is tolerable. You may work as much as feels doable to you. Prescription for your medications has been electronically transmitted to the [facility] pharmacy in [place]. A work note has been provided as well. Forms: Activity restrictions Discharge Date/Time: 08/29/23 15:43
[2023-08-29] MEDS: KETOROLAC 60 MG/2 ML VIAL IM STA (14:36)
[2023-08-29] MEDS: DEXAMETHASONE 10 MG/ML VIAL IM STA (14:37)
--- NOTE | 2023-08-29 15:01 | XRAY Report ---
PROCEDURE: Lumbar Spine 2-3V INDICATIONS: fall/pain after blunt injury TECHNIQUE: 3 views of the lumbar spine were acquired. COMPARISON: None. FINDINGS: Bones: 5 [id number] vertebrae are present. There is normal bony alignment. No vertebral body compression fractures. No suspicious bony lesions. Soft tissues: Overlying bowel gas pattern is normal. No suspicious soft tissue calcifications. IMPRESSION: No acute fracture. No osseous lesion. If symptoms and/or clinical suspicion for pathology continue, further assessment with repeat plain films, or advanced imaging (e.g., CT, MRI, or bone sc an) is recommended for further assessment. Reviewed by: Ramsey Davis MD on 08/29/2023 2:59 PM PDT Approved by: Ramsey Davis MD on 08/29/2023 2:59 PM PDT Station ID: [id number]
[2023-08-29 15:49] VITALS: BP 138/82; O2SAT 100
--- NOTE | 2023-08-29 16:57 | XRAY Report ---
PROCEDURE: Ribs w/PA Chest 3+V LT INDICATIONS: fall/pain after blunt inferior/posterior injury TECHNIQUE: 2 views of the ribs were acquired, along with a single view chest. COMPARISON: None. FINDINGS: Surgical changes and devices: None. Bones and chest wall: No fractures or dislocations. No suspicious bony lesions. Overlying soft tis sues appear unremarkable. Lungs and pleura: No pleural effusions or pneumothorax. Lungs appear clear. Mediastinum: Mediastinal contours appear normal. Heart size is normal. IMPRESSION: No displaced rib fracture or pneumothorax. Reviewed by: Alexys Vazquez MD on 08/29/2023 4:56 PM PDT Approved by: Alexys Vazquez MD on 08/29/2023 4:56 PM PDT Station ID: [id number]
== END 2023-08-29 15:43 | disposition home or self-care (01) ==
LOC: ED 13:18
DX: S20.222A Contusion of left back wall of thorax, initial encounter (principal); W18.30XA Fall on same level, unspecified, initial encounter
CPT/HCPCS: 96372; 99283